=== PATIENT | male | born 1995 | race Caucasian/White ===

== ENCOUNTER 2017-12-06 04:38 | Emergency (ER) | payer OTHER ==
[~2017-12-06] VITALS: Ht 180.3 cm; Wt 60.9 kg
[2017-12-06 04:47] VITALS: TEMP 36.5; O2SAT 98; Ht 180.3 cm; Wt 60.9 kg
[2017-12-06] MEDS ORDERED: CETI10TA84 PO (04:53)
--- NOTE | 2017-12-06 05:19 | EMERGENCY ROOM VISIT NOTE ---
History Report prepared by Jaspreet: Mratín Taylor Under the Supervision of: Dr. Kristine Mcfarland D.O. First contact with patient: 04:41 Chief Complaint: ALCOHOL OVERDOSE Stated Complaint: ALCOHOL Nursing Triage Summary: pt arrives BLS from [facility]. pt was found walking into someone elses apartment. pt was drinking tonight but unknown amount. pt was at [facility]. History of Present Illness HPI limited due to altered mental status secondary to alcohol intoxication. The patient is a 22 year old male who presents to the Emergency Room via with complaints of a recent alcohol overdose. EMS states that the patient was trying to get home but ended up walking into someone else's apartment. Patient states he drank vodka and coke at [facility]. He denies vomiting or falling down. Patient states he does not have any health problems. Source of History: patient Onset: Prior to arrival Position: other (Global) Modifying Factors (Relieving): other (None) Associated Symptoms: No vomiting Review of Systems ROS limited secondary due to alcohol intoxication. Past Medical & Surgical No pertinent past medical history. Social History Smoking Status: Never Smoker Alcohol Use: occasionally Drug Use: none Marital Status: single Occupation Status: [employer] student Current/Historical Medications Scheduled Cetirizine (Zyrtec), 10 MG PO DAILY Allergies Coded Allergies: Penicillins (Verified Allergy, Unknown, HIVES, 12/06/17) Physical Exam Vital Signs Date Time Temp Pulse Resp B/P (MAP) Pulse Ox O2 Delivery O2 Flow Rate FiO2 12/06/17 06:55 139 19 94 Room Air 12/06/17 06:50 144 15 95 12/06/17 06:45 142 16 94 12/06/17 06:40 Room Air 4.0 12/06/17 06:40 143 16 94 Nasal Cannula 4.0 12/06/17 06:35 138 15 78 Room Air 12/06/17 06:30 120/53 12/06/17 06:20 104 18 90 12/06/17 06:05 107 16 90 12/06/17 06:00 103/42 12/06/17 05:53 103 16 93 12/06/17 05:38 108 94 12/06/17 05:30 123/57 12/06/17 05:23 108 97 Room Air 12/06/17 05:10 145 12/06/17 05:00 126/72 12/06/17 04:47 98 Room Air 12/06/17 04:47 36.5 123 12 114/72 97 Room Air Physical Exam General: Cooperative on exam, slightly slurred speech, and smells of alcohol HEENT: Head - normocephalic and atraumatic Pupils are 8mm, equal, round, and sluggishly reactive to light. Extraocular eye muscles are intact, and sclera are anicteric. Nose - moist nasal mucosa without discharge. Mouth - moist buccal mucosa. Oropharynx is nonerythematous and there is no tonsillar exudate or edema noted. Neck: Supple; no nuchal rigidity, cervical lymphadenopathy. Heart: Tachycardic rate and rhythm. There is a normal S1 and S2 with no murmurs , clicks, or gallops appreciated. Lungs: Clear to auscultation bilaterally with no wheezes, rales, or rhonchi. Abdomen: Soft, completely nontender, nondistended, with good bowel sounds. There are no palpable pulsatile masses or hepatosplenomegaly. There is no guarding, rigidity, or rebound noted. Extremities: No evidence of cyanosis, clubbing, or edema. There are easily palpable peripheral pulses. Skin: warm and dry with good turgor and no rashes. Medical Decision & Procedures Laboratory Results 12/06/17 04:41 Test 12/06/17 04:41 Anion Gap 10.0 mmol/L (3-11) Est Creatinine Clear Calc Drug Dose 98.7 ml/min Estimated GFR () 121.2 Estimated GFR (Non- 104.6 BUN/Creatinine Ratio 10.3 (10-20) Calcium Level 8.8 mg/dl (8.5-10.1) Ethyl Alcohol mg/dL 211.0 mg/dl (0-3) Laboratory results per my review. ED Course 0500: The patient was evaluated in room A11a. A complete history and physical examination were performed. The patient was placed on the rn cardiac rehab and pulse oximeter. He was placed in the prone position to avoid aspiration. Labs were drawn as above. Previous electronic medical records were reviewed. 0650: The patient is sleeping at this time. Vital signs are stable. 0730: Patient was signed out to Dr. Hale at change of shifts. Medical Decision The patient is a 22 year old male who presents to the ED with a recent alcohol overdose. Differential diagnosis includes alcohol overdose, drug intoxication, hypoglycemia, and head injury. Lab results show alcohol = 211, normal renal function and glucose. This is a 22-year-old male patient who was brought to the emergency department after consuming too much alcohol. Unfortunately he went into someone else's apartment. Upon presentation to the ER, the patient was cooperative. His vitals are stable. He will be monitored here until he is more sober. The case was signed out to Dr. Hale at change of shift. Medication Reconcilliation Current Medication List: was personally reviewed by me Blood Pressure Screening Patient's blood pressure: Normal blood pressure Blood pressure disposition: Did not require urgent referral Impression Primary Impression: Alcohol overdose Scribe Attestation The scribe's documentation has been prepared under my direction and personally reviewed by me in its entirety. I confirm that the note above accurately reflects all work, treatment, procedures, and medical decision making performed by me. Departure Information Dispostion Still a Patient Patient Instructions My [facility] Problem Qualifiers Primary Impression: Alcohol overdose Encounter type: initial encounter Injury intent: accidental or unintentional Qualified Codes: T51.91XA - Toxic effect of unspecified alcohol , accidental (unintentional), initial encounter
[2017-12-06 05:40] LABS: CALCIUM 8.8 mg/dl (8.5-10.1); CREATININE 1.02 mg/dl (0.60-1.40); POTASSIUM 3.8 mmol/L (3.5-5.1)
--- NOTE | 2017-12-06 07:07 | EMERGENCY ROOM VISIT NOTE ---
ED Visit Note First contact with patient: 07:06 Pt signed out to me at change of shift. History and physical verified by me. Patient is awaiting sobering up. Upon waking up at 9 AM this morning the patient does not recall any incident after the club last night. He did not realize he was found in another person's apartment. He denies being suicidal or homicidal. His only past medical history is having tubes placed in his ear when he was young. I strongly recommended that this patient discuss his visit with his parents. I feel he is clinically sober to be discharged home.
[2017-12-06 09:50] VITALS: BP 119/67; PULSE 88; O2SAT 96
== END 2017-12-06 09:15 | disposition home or self-care (01) ==
LOC: EDBD 04:38 → C.EDA 04:39
DX: T51.0X1A Toxic effect of ethanol, accidental (unintentional), initial encounter (principal)

== ENCOUNTER 2018-02-28 01:56 | Emergency (ER) | payer BC, OTHER ==
[~2018-02-28] VITALS: Ht 185.4 cm; Wt 57.9 kg
[~2018-02-28 01:56] MED LIST: CETI10TA84 PO
[2018-02-28 02:02] VITALS: TEMP 36.5; Ht 185.4 cm; Wt 57.9 kg
[2018-02-28 02:03] VITALS: O2SAT 98
--- NOTE | 2018-02-28 02:12 | EMERGENCY ROOM VISIT NOTE ---
History Report prepared by Jaspreet: Max Monzon Under the Supervision of: Dr. Kristine Mcfarland D.O. First contact with patient: 02:00 Chief Complaint: ALCOHOL OVERDOSE Stated Complaint: ALCOHOL Nursing Triage Summary: Pt brought in by EMS. Pt was found sleeping in the laundry room at the [place]. No trauma noted. Pt could not find a sober friend. 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 Per EMS, the patient was found intoxicated in the laundry room of the [facility]. He notes that he was drinking Vodka. He notes that he was in the laundry room "within the realm of my own home." HPI is limited secondary to alcohol intoxication. Source of History: patient History Limited By: intoxication Onset: SYSTEMS AUDITOR Position: other (general) Quality: other (alcohol intoxication) Timing: other (persistent) Review of Systems ROS is limited secondary to alcohol intoxication. Past Medical & Surgical Medical Problems: (1) No Known Active Medical Problems No other pertinent personal past medical history obtained. Family History No pertinent family history Social History Smoking Status: Never Smoker Alcohol Use: heavy Drug Use: none Marital Status: single Occupation Status: [employer] student Current/Historical Medications Scheduled Cetirizine (Zyrtec), 10 MG PO DAILY [nasonex], 1 SPRAY GALDINO DAILY Allergies Coded Allergies: Penicillins (Verified Allergy, Unknown, HIVES, 02/28/18) Physical Exam Vital Signs Date Time Temp Pulse Resp B/P (MAP) Pulse Ox O2 Delivery O2 Flow Rate FiO2 02/28/18 06:34 133 21 106/45 96 02/28/18 05:45 103 02/28/18 05:01 97 18 97/63 94 Room Air 02/28/18 04:00 100 19 97/54 94 Room Air 02/28/18 03:00 96 16 95/61 94 Room Air 02/28/18 02:05 135 02/28/18 02:03 98 Room Air 02/28/18 02:02 36.5 134 20 124/67 97 Room Air Physical Exam General: Smells of ETOH. HEENT: Head - normocephalic and atraumatic Pupils are 4 mm, round, and sluggishly reactive to light. Extraocular eye muscles are intact, and sclera are anicteric. Nose - moist nasal mucosa without discharge. Mouth - moist buccal mucosa. Oropharynx is nonerythematous and there is no tonsillar exudate or edema noted. Neck: Supple; no JVD, nuchal rigidity, cervical lymphadenopathy. Heart: Tachycardic rate and regular rhythm. There is a normal S1 and S2 with no murmurs, clicks, or gallops appreciated. Lungs: Clear to auscultation bilaterally with no wheezes, rales, or rhonchi. Abdomen: Soft, completely nontender, nondistended, with good bowel sounds. There are no palpable pulsatile masses or hepatosplenomegaly. There is no guarding, rigidity, or rebound noted. Extremities: No evidence of cyanosis, clubbing, or edema. There are easily palpable peripheral pulses. Skin: warm and dry with good turgor and no rashes. Medical Decision & Procedures Laboratory Results 02/28/18 02:11 Test 02/28/18 02:11 Anion Gap 6.0 mmol/L (3-11) Est Creatinine Clear Calc Drug Dose 78.4 ml/min Estimated GFR () 97.6 Estimated GFR (Non- 84.2 BUN/Creatinine Ratio 10.0 (10-20) Calcium Level 8.7 mg/dl (8.5-10.1) Ethyl Alcohol mg/dL 211.0 mg/dl (0-3) Laboratory results per my review. ED Course 0203: Past medical records reviewed. The patient was evaluated in room B3A. A complete history and physical exam was performed. The patient was placed in the prone position to avoid aspiration. They were observed on the cardiac technician and pulse oximeter. Labs were drawn as above 0358: I reassessed the patient at this time. The patient is sleeping. His vital signs are stable. 0550: I reassessed the patient at this time. The patient is sleeping. His vital signs are stable. 0602: I reassessed the patient at this time. He is feeling better and wants to go home. I discussed the results and treatment plan with the patient. I answered all pertaining questions that he had. He expressed understanding and verbalized agreement. The patient will be discharged home. Medical Decision The patient is a 22 year old male who presents to the ED with alcohol intoxication. Differential diagnosis includes alcohol overdose, drug intoxication, hypoglycemia, and head injury. Lab results showed. Alcohol 211. Normal renal function. Glucose is 105. The patient was brought to the emergency department after consuming too much alcohol. There were no obvious signs of trauma or complaints of pain. They were observed closely throughout the night and remained stable while here in the ER. The patient was allowed time to sober up prior to discharge. I had a conversation with the patient about the hazards of such excessive alcohol use. I also discussed with him that this was his second visit to the emergency department in the past 3 months as an alcohol overdose. I question whether or not he was an alcoholic. He denied this. Medication Reconcilliation Current Medication List: was personally reviewed by me Blood Pressure Screening Patient's blood pressure: Normal blood pressure Impression Primary Impression: Alcohol overdose Scribe Attestation The scribe's documentation has been prepared under my direction and personally reviewed by me in its entirety. I confirm that the note above accurately reflects all work, treatment, procedures, and medical decision making performed by me. Departure Information Dispostion Home / Self-Care Referrals No Doctor, Assigned (PCP) Forms HOME CARE DOCUMENTATION FORM, IMPORTANT VISIT INFORMATION Patient Instructions ED Overdose Alcohol, [facility]: [employer] Students and Alcohol Related Visits, My [facility] Additional Instructions Avoid such excessive alcohol use in the future. Tylenol 650 mg every 6 hours for headache. Drink plenty of fluids and take a bland diet today. Return to the emergency department for worsening symptoms or any medical concerns. Problem Qualifiers Primary Impression: Alcohol overdose Encounter type: initial encounter Injury intent: accidental or unintentional Qualified Codes: T51.91XA - Toxic effect of unspecified alcohol , accidental (unintentional), initial encounter
[2018-02-28 02:40] LABS: CALCIUM 8.7 mg/dl (8.5-10.1); CREATININE 1.22 mg/dl (0.60-1.40); POTASSIUM 4.1 mmol/L (3.5-5.1)
[2018-02-28] MEDS ORDERED: CETI10TA84 PO (06:25)
[2018-02-28] MEDS ORDERED: nasonex NAE (06:26)
[2018-02-28 06:34] VITALS: BP 106/45; PULSE 133; O2SAT 96
== END 2018-02-28 06:36 | disposition home or self-care (01) ==
LOC: EDBD 01:56 → C.EDB 01:58
DX: T51.91XA Toxic effect of unspecified alcohol, accidental (unintentional), initial encounter (principal); Y90.7 Blood alcohol level of 200-239 mg/100 ml; Z79.899 Other long term (current) drug therapy; Z88.0 Allergy status to penicillin